=== PATIENT | female | born 1980 | race Caucasian/White ===

== ENCOUNTER 2021-01-19 08:01 | Emergency (ER) | payer SELFPAY ==
[~2021-01-19] VITALS: Ht 160 cm; Wt 105.3 kg
[2021-01-19 08:05] VITALS: BP 123/81
[2021-01-19] MEDS ORDERED: KETOROLAC 30 MG/1 ML IM ONE (08:30)
[2021-01-19] MEDS ORDERED: ACETAMINOPHEN 500 MG TABLET PO ONE (08:30)
[2021-01-19 08:56] LABS: HCT (SEDRATE) 38.1 % (34.6-47.8)
[2021-01-19 08:57] LABS: BASOPHILS % (AUTO) 1 % (0-1); EOSINOPHILS % (AUTO) 2 % (1-7); LYMPHOCYTES % (AUTO) 20 % (22-44); MEAN CORPUSCULAR HEMOGLOBIN 28.5 pg (27.0-34.8); MEAN CORPUSCULAR HGB CONC 33.5 g/dL (32.4-35.8); MEAN PLATELET VOLUME 7.6 fL (7.4-10.4); MONOCYTES % (AUTO) 5 % (2-9); NEUTROPHILS % (AUTO) 73 % (42-75); PLATELET COUNT 242 x10^3/uL (130-400); RED BLOOD COUNT 4.49 x10^6/uL (3.82-5.3); RED CELL DISTRIBUTION WIDTH 15.4 % (9.6-15.2)
[2021-01-19 09:02] LABS: ALBUMIN 3.6 g/dL (3.4-5.0); ANION GAP 5 mmol/L (5-15); CALCIUM 8.6 mg/dL (8.5-10.1); CHLORIDE 108 mmol/L (98-107)
[2021-01-19] MEDS ORDERED: ACETAMINOPHEN 500 MG TABLET ONE (09:03)
[2021-01-19] MEDS ORDERED: KETOROLAC 30 MG/1 ML ONE (09:03)
[2021-01-19 09:05] LABS: MD NO
[2021-01-19 09:06] LABS: ALANINE AMINOTRANSFERASE 24 U/L (12-78); ALKALINE PHOSPHATASE 75 U/L (45-117); BILIRUBIN,TOTAL 0.3 mg/dL (0.2-1.0); C-REACTIVE PROTEIN, QUANT 0.77 mg/dL (0.02-0.49); CREATININE 0.73 mg/dL (0.55-1.02); TOTAL PROTEIN 7.1 g/dL (6.4-8.2)
== END 2021-01-19 10:03 | disposition home or self-care (01) ==
LOC: ED 09:50
DX: M17.0 Bilateral primary osteoarthritis of knee (principal); M19.072 Primary osteoarthritis, left ankle and foot; M19.071 Primary osteoarthritis, right ankle and foot; E66.9 Obesity, unspecified; Z68.41 Body mass index [BMI] 40.0-44.9, adult
CPT/HCPCS: 36415; 80053; 85025; 85651; 86140; 96372; 99283; J1885